=== PATIENT | male | born 1985 | race Hispanic/Latino ===

== ENCOUNTER 2019-05-16 05:42 | Day surgery (SDC) | payer MEDICAID ==
[~2019-05-16 05:42] MED LIST: NYST5ORA7 PO; OMEP40CA37 PO
[2019-05-16 06:33] VITALS: BP 116/73
[2019-05-16] MEDS ORDERED: SODIUM CHLORIDE 0.9% 1000ML 1,000 ML IV ONE (07:31)
[2019-05-16] MEDS ORDERED: PROPOFOL 10 MG/ML 20ML VIAL IV ONE (08:25)
[2019-05-16 08:42] VITALS: BP 104/54
[2019-05-16 08:47] VITALS: BP 107/44
[2019-05-16 08:53] VITALS: BP 104/66
[2019-05-16 09:02] VITALS: BP 117/60
[2019-05-16 09:10] VITALS: BP 118/75
== END 2019-05-16 09:11 | disposition home or self-care (01) ==
LOC: ENDO 05:42 → DAH 05:42 → ENDO 09:11
PROVIDERS: ATTEND Internal Medicine
DX: K64.0 First degree hemorrhoids (principal); K21.9 Gastro-esophageal reflux disease without esophagitis; K44.9 Diaphragmatic hernia without obstruction or gangrene; K29.70 Gastritis, unspecified, without bleeding; K14.8 Other diseases of tongue; R19.4 Change in bowel habit; D13.1 Benign neoplasm of stomach; Z79.899 Other long term (current) drug therapy; Z90.49 Acquired absence of other specified parts of digestive tract
CPT/HCPCS: 45380; 88305; A4606; J2704; J7030